=== PATIENT | female | born 1975 | race Caucasian/White ===

== ENCOUNTER 2017-02-28 23:45 | Emergency (ER) | payer BC ==
--- NOTE | 2017-02-28 23:47 | PDOC ---
History of Present Illness - General Chief Complaint: Vaginal Bleeding Stated Complaint: DIZZY/NAUSEA/MISCARRIAGE Time Seen by Provider: 02/28/17 23:47 History Source: Patient Exam Limitations: No Limitations - History of Present Illness Initial Comments: 03/01/17 00:31 This is a 41-year-old female who is 5 para 3 with 2 spontaneous abortions. Patient comes in complaining of left had a vaginal bleeding throughout the day. Patient did a home test and estimates herself to be approximately 5 weeks . Patient bleeding is gotten much less however she does feel lightheaded and has a migraine headache. Patient recently had a spontaneous back in November. Patient also has history of anxiety and states she is also feeling anxious. Patient said that the bleeding has decreased throughout the day especially after she passed what appeared to be some large clots and tissue. Patient said there is minimal abdominal cramping at this time. PAST MEDICAL HISTORY: As per history of present illness PAST SURGICAL HISTORY: no significant history FAMILY HISTORY: no pertinant history SOCIAL HISTORY: Pt lives with family and is employed. MEDICATIONS: reviewed ALLERGIES: As per nursing notes Review of Systems General: No fevers or chills, no weakness, no weight loss HEENT: No change in vision. No sore throat,. No ear pain CardioVascular: No chest pain or shortness of breath Respiratory:No cough, or wheezing. Gastrointestinal: no nausea, vomitting, diarrhea or constipation, No rectal bleeding Genitourinary: No dysuria, hematuria, or frequency, vaginal bleeding as per history of present illness Musculoskeletal: No joint or muscle pain or swelling Neurologic: No headache, vertigo, dizziness or loss of consciousness Psychiatric: nor depression Skin: No rashes or easy bruising Endocrine: no increased thirst or abnormal weight change Allergic: no skin or latex allergy All other systems reviewed and normal Exam: General: Well-nourished well-developed individual, no acute distress HEENT: Throat: Normal, tonsils normal, no erythema or exudate Neck: Supple, no meningeal signs, no lymphadenopathy Eyes::Pupils equal reactive and round, extraocular motion intact Chest: Nontender to palpation Cardiac: S1-S2 normal, regular rate and rhythm, no murmurs rubs or gallops Respiratory: Lungs clear to auscultation bilateral Abdomen: Soft, nondistended, normal bowel sounds, nontender to palpation diffusely Pelvic: On pelvic exam there is a small amount of blood in the vaginal vault the os is closed there is no adnexal masses or tenderness. Extremities: Warm, dry, no cyanosis, clubbing, or edema Skin: No rashes Neuro: Alert and oriented x3, nonfocal exam, grossly intact, normal gait Psych: Normal mood and affect Ultrasound shows Assessment and plan: This is a 41-year-old female who comes in status post spontaneous earlier in the day. Patient was feeling lightheaded and dizzy received a liter of fluid and feels better. Patient had an ultrasound done that shows no retained products of conception. Patient discharged home will follow-up with her OB doctor as needed Past History - Past Medical History Allergies/Adverse Reactions: Allergies Allergy/AdvReac Type Severity Reaction Status Date / Time No Known Allergies Allergy Unverified 02/28/17 23:47 Home Medications: Ambulatory Orders Clonazepam [KlonoPIN] 0.5 mg PO PRN PRN 02/28/17 ED Treatment Course - LABORATORY CBC & Chemistry Diagram: 03/01/17 00:00 03/01/17 00:00 *DC/Admit/Observation/Transfer Diagnosis at time of Disposition: Complete - Discharge Dispostion Disposition: HOME Condition at time of disposition: Stable Admit: No - Referrals Referrals: STAFF,NOT ON [Primary Care Provider] - - Patient Instructions Additional Instructions: Ibuprofen or Tylenol as needed for pain. Return to the emergency department immediately with ANY new, persistent or worsening symptoms. Continue any medications as previously prescribed by your physician. You should follow up with your OB doctor as soon as possible regarding today's emergency department visit. . Please make sure your doctor reviews the results of your emergency evaluation. Thank you for coming to the Emergency Department today for your care. It was a pleasure to see you today. Please note that your evaluation is INCOMPLETE until you follow-up with your doctor.
[2017-02-28] MEDS ORDERED: SODIUM CHLORIDE 1,000 ML IV ONE (23:48)
[2017-02-28 23:50] VITALS: BP 133/92; PULSE 92; TEMP 98.3; BMI 22.3
[2017-02-28] MEDS ORDERED: ONDANSETRON 4 MG/2 ML VIAL IVPB ONE (23:57)
[2017-03-01] MEDS ORDERED: ONDANSETRON 4 MG/2 ML VIAL ONE
[2017-03-01] MEDS ORDERED: clonazePAM 0.5 MG TABLET PO ONE (00:05)
[2017-03-01] MEDS ORDERED: clonazePAM 0.5 MG TABLET ONE (00:08)
[2017-03-01] MEDS ORDERED: KETOROLAC TROMETHAMINE 30 MG/1 ML VIAL ONE (00:10)
[2017-03-01] MEDS: KETOROLAC TROMETHAMINE 30 MG/1 ML VIAL IVPUSH ONE ×2 (00:13→00:47)
[2017-03-01] MEDS ORDERED: METOCLOPRAMIDE HCL INJECTION 10 MG/2 ML VIAL IVPUSH ONE (00:39)
[2017-03-01 00:57] LABS: BASOPHIL 0.3 % (0-2.0); EOSINOPHIL 2.4 % (0-4.5); MCH 29.1 pg (25.7-33.7); MCHC 32.8 g/dl (32.0-36.0); MEAN CELL VOLUME 88.5 fl (80-96); MEAN PLT VOLUME 9.1 fl (7.5-11.1); NEUTROPHILS 68.4 % (42.8-82.8); PLATELET COUNT 186 K/MM3 (134-434); RDW 13.6 % (11.6-15.6); WHITE BLOOD COUNT 5.5 K/mm3 (4.0-10.0)
[2017-03-01 01:20] LABS: ALBUMIN 3.9 g/dl (3.4-5.0); ALK PHOS 91 U/L (45-117); ANION GAP 9 (8-16); BILIRUBIN,TOTAL 0.7 mg/dL (0.2-1.0); CALCIUM 8.9 mg/dL (8.5-10.1); CO2 27 mmol/L (21-32); COCKROFT - GAULT 87.8815; CREATININE 0.8 mg/dL (0.55-1.02); GLUCOSE,RANDOM 140 mg/dL (74-106); SGOT/AST 23 U/L (15-37); SGPT/ALT 24 U/L (12-78); TOT PROT 6.8 g/dl (6.4-8.2)
== END 2017-03-01 01:19 | disposition home or self-care (01) ==
LOC: FER 23:45
PROC: 3E0333Z Introduction of Anti-inflammatory into Peripheral Vein, Percutaneous Approach (ICD-10-PCS; principal; 2017-02-28)
PROC: 3E033GC Introduction of Other Therapeutic Substance into Peripheral Vein, Percutaneous Approach (ICD-10-PCS; 2017-02-28)
PROC: 3E0337Z Introduction of Electrolytic and Water Balance Substance into Peripheral Vein, Percutaneous Approach (ICD-10-PCS; 2017-02-28)
DX: O03.9 Complete or unspecified spontaneous abortion without complication (principal)
CPT/HCPCS: 36415; 76815-TC; 80053; 84702; 85025; 99282-25

== ENCOUNTER 2018-10-26 00:11 | Emergency (ER) | payer BC | END 2018-10-26 01:41 | disposition home or self-care (01) | LOC: FER 00:11 ==